=== PATIENT | female | born 1995 | race African-American/Black ===

== ENCOUNTER 2016-11-26 16:02 | Emergency (ER) | payer SELFPAY ==
[2016-11-26 16:03] VITALS: BP 136/80; PULSE 63; RESP 15; TEMP 98.6; O2SAT 98
--- NOTE | 2016-11-26 16:09 | PD ---
Physical Exam Time Seen by Provider: 16:08 Narrative 21 y/o female here with L sided pelvic cramping for one week and light vaginal bleeding for one day, +home test. Vital signs reviewed. Seen at triage desk. Awaiting bed placement. Data Data Last Documented VS Vital Signs Date Time Temp Pulse Resp B/P (MAP) Pulse Ox O2 Delivery O2 Flow Rate FiO2 11/26/16 16:03 98.6 63 15 136/80 (98) 98 MDM Medical Record Reviewed: Yes Supervised Visit with MARIA: No Scripts No Active Prescriptions or Reported Meds Francisco Javier Loving Nov 26, 2016 16:09
== END 2016-11-26 17:58 | disposition left against medical advice (07) ==
LOC: NED 16:02
DX: R10.2 Pelvic and perineal pain (principal); N93.9 Abnormal uterine and vaginal bleeding, unspecified; Z53.21 Procedure and treatment not carried out due to patient leaving prior to being seen by health care provider
CPT/HCPCS: 99281

== ENCOUNTER 2017-02-16 19:51 | Emergency (ER) | payer MEDICAID, OTHER ==
[2017-02-16 20:41] VITALS: BP 107/64; PULSE 95
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
[2017-02-16 21:58] LABS: BACTERIA, URINE MANY /hpf; BILIRUBIN, URINE NEG (NEG); BLOOD, URINE NEG (NEG); GLUCOSE,URINE NEG (NEG); HYALINE CAST, URINE 1 /lpf (RARE); KETONE, URINE TRACE mg/dL (NEG); MUCUS URINE MANY /lpf (OCC); NITRITE,URINE NEG (NEG); PH, URINE 6.5 (5.0-8.5); SQUAMOUS EPITHELIAL CELL URINE 15 /hpf (0-5); URINE COLOR YELLOW (YELLW/STRAW); URINE LEUKOCYTE ESTERASE LARGE (NEG)
== END 2017-02-16 21:04 | disposition home or self-care (01) ==
LOC: HOBED 19:51
DX: O26.892 Other specified pregnancy related conditions, second trimester (principal); Z3A.17 17 weeks gestation of pregnancy
CPT/HCPCS: 76815; 80307; 81001; 87086

== ENCOUNTER 2017-05-04 17:24 | Emergency (ER) | payer OTHER, MEDICAID ==
[~2017-05-04] VITALS: Ht 162.6 cm; Wt 67.0 kg
[2017-05-04 18:00] VITALS: BP 137/73; PULSE 90; RESP 16; TEMP 98.1; O2SAT 98
[2017-05-04 18:38] LABS: AUTOMATED NEUTROPHIL # 6.9 TH/MM3 (1.8-7.7); BASOPHIL % 0.2 % (0.0-2.0); EOSINOPHIL # 0.1 TH/MM3 (0-0.4); EOSINOPHIL % 0.8 % (0.0-4.0); HEMATOCRIT 27.2 % (35.0-46.0); LYMPH % 15.9 % (9.0-44.0); LYMPHOCYTE # 1.5 TH/MM3 (1.0-4.8); MEAN CELL VOLUME 73.4 FL (80.0-100.0); MEAN CORPUSCULAR HEMOGLOBIN 24.3 PG (27.0-34.0); MEAN CORPUSCULAR HGB CONC 33.1 % (32.0-36.0); MEAN PLATELET VOLUME 9.5 FL (7.0-11.0); MONO % 10.4 % (0.0-8.0); NEUT % 72.7 % (16.0-70.0); PLATELET COUNT 194 TH/MM3 (150-450); RED BLOOD COUNT 3.71 MIL/MM3 (4.00-5.30); RED CELL DISTRIBUTION WIDTH 13.7 % (11.6-17.2); WHITE BLOOD COUNT 9.5 TH/MM3 (4.0-11.0)
[2017-05-04 18:52] LABS: BACTERIA, URINE OCC /hpf; BILIRUBIN, URINE NEG (NEG); BLOOD, URINE NEG (NEG); GLUCOSE,URINE NEG (NEG); KETONE, URINE NEG (NEG); MUCUS URINE FEW /lpf (OCC); NITRITE,URINE NEG (NEG); PH, URINE 7.5 (5.0-8.5); SQUAMOUS EPITHELIAL CELL URINE 11 /hpf (0-5); URINE COLOR LIGHT-YELLOW (YELLW/STRAW); URINE LEUKOCYTE ESTERASE LARGE (NEG)
[2017-05-04] MEDS ORDERED: ACETAMINOPHEN 500 MG CPLT PO ONE (19:00)
[2017-05-04 19:06] LABS: ALBUMIN 2.6 GM/DL (3.4-5.0); AST (GOT) 25 U/L (16-38); BICARBONATE 23.2 MEQ/L (21.0-32.0); BLOOD UREA NITROGEN 6 MG/DL (7-18); CALCIUM 8.6 MG/DL (8.5-10.1); CHLORIDE 108 MEQ/L (98-107); CREATININE 0.55 MG/DL (0.50-1.00); GLOMERULAR FILTRATION RATE 171 ML/MIN (>89); GLUCOSE,RANDOM 76 MG/DL (74-106); SODIUM (NA) 139 MEQ/L (136-145)
[2017-05-04 19:07] LABS: ALT (GPT) 16 U/L (9-42)
[2017-05-04 19:09] LABS: ALKALINE PHOSPHATASE 79 U/L (45-117); TOTAL BILIRUBIN ADULT 0.2 MG/DL (0.2-1.0); TOTAL PROTEIN 6.8 GM/DL (6.4-8.2)
[2017-05-04] MEDS ORDERED: CEPH-459 PO (19:38)
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
[2017-05-04] MEDS ORDERED: CYCL10TA PO (22:21)
== END 2017-05-04 22:30 | disposition home or self-care (01) ==
LOC: NEPD 17:24 → HOBED 22:30
DX: O23.13 Infections of bladder in pregnancy, third trimester (principal); Z04.1 Encounter for examination and observation following transport accident; V43.62XA Car passenger injured in collision with other type car in traffic accident, initial encounter; Z3A.28 28 weeks gestation of pregnancy
CPT/HCPCS: 80053; 81001; 83690; 85025; 86850; 86900; 86901; 99283